=== PATIENT | female | born 1975 | race Caucasian/White ===

== ENCOUNTER 2018-01-30 07:31 | Day surgery (SDC) | payer OTHER ==
[2018-01-23 15:34] VITALS: Ht 152.4 cm; Wt 99.1 kg
[~2018-01-30] VITALS: Ht 152.4 cm; Wt 99.1 kg
[~2018-01-30 07:31] MED LIST: ACET-1256 PO; ALPR-411 PO; CEFAZOLIN 2000MG IV PUSH 15 ML IV SCH; DESVENLAFAXINE PO; IBUP-103 PO; LACTATED RINGER'S 1000ML 1,000 ML IV SCH; MONT1TAB3 PO; PANT40TA PO; RANI150T85 PO; VENL150C PO
[2018-01-30] MEDS ORDERED: HYDROmorphone INJ 0.5 MG/0.5 ML SYR IV PRN (07:45)
[2018-01-30] MEDS ORDERED: EpHEDrine SULFATE INJ 50 MG/ML AMP IV PRN (07:45)
[2018-01-30] MEDS ORDERED: PHENYLEPHRINE 100MCG/ML 5ML SYR IV PRN (07:45)
[2018-01-30] MEDS ORDERED: ATROPINE SULFATE 0.1 MG/ML 5ML SYR IV PRN (07:45)
[2018-01-30] MEDS ORDERED: PROMETHAZINE HCL INJ 12.5 MG in SODIUM CHLORIDE 0.9% 50ML 50 ML IV PRN (07:45)
[2018-01-30] MEDS ORDERED: ONDANSETRON INJ 2 MG/ML 2 ML VIAL IV PRN ×2 (07:45→12:30)
[2018-01-30 08:02] VITALS: BP 131/90; PULSE 90; TEMP 36.4; O2SAT 93
[2018-01-30] MEDS ORDERED: FENTANYL CITRATE INJ 50 MCG/1 ML 2 ML VIAL ONE ×2 (10:10→11:30)
[2018-01-30] MEDS ORDERED: MIDAZOLAM HCL 1 MG/ML 2ML VIAL ONE ×2 (10:10)
[2018-01-30] MEDS ORDERED: CONRAY 60% 50 ML VIAL ONE (10:42)
[2018-01-30] MEDS ORDERED: BUPIVACAINE 0.5 % 5 MG/1 ML MPF 30ML VIAL ONE (10:42)
[2018-01-30] MEDS ORDERED: CEFAZOLIN SOD 1 GM VIAL ONE (10:42)
[2018-01-30] MEDS ORDERED: HEPARIN SOD (PORCINE) 1000 UNIT/ML 10 ML VIAL ONE (10:42)
--- NOTE | 2018-01-30 10:50 | History & Physical Bridge Note ---
H&P Re-Evaluation Bridge Note: I have examined the patient, reviewed the History & Physical and in the interval since the performance of the History & Physical I have noted the following changes of clinical significance: No changes noted
[2018-01-30] MEDS ORDERED: DEXAMETHASONE SOD INJ 4 MG/ML VIAL ONE (11:31)
[2018-01-30] MEDS ORDERED: ONDANSETRON INJ 2 MG/ML 2 ML VIAL ONE (11:31)
[2018-01-30] MEDS ORDERED: PROPOFOL IV EMULSION 10 MG/ML 20 ML VIAL ONE (11:31)
[2018-01-30] MEDS ORDERED: ROCURONIUM BROMIDE 10 MG/ML 5 ML VIAL ONE (11:31)
[2018-01-30] MEDS ORDERED: LIDOCAINE HCL 2% 2 ML VIAL (20MG/ML) ONE (11:31)
[2018-01-30] MEDS ORDERED: GLYCOPYRROLATE INJ 0.2 MG/ML VIAL ONE ×2 (11:32→12:17)
[2018-01-30] MEDS ORDERED: NEOSTIGMINE METHYLSULFATE 5 MG/5 ML SYR ONE (11:32)
[2018-01-30] MEDS ORDERED: EpHEDrine SULFATE 50MG/5ML SYR ONE (11:41)
[2018-01-30] MEDS ORDERED: SODIUM CHLORIDE 0.9% 1000ML 1,000 ML IV SCH (12:16)
--- NOTE | 2018-01-30 12:16 | [facility] Post Operative Brief Note ---
Immediate Operative Summary Operative Date January 30, 2018. Pre-Operative Diagnosis chronic cholecystitis, symptomatic cholelithiasis Post-Operative Diagnosis same as preop Procedure(s) Performed Laparoscopic Cholecystectomy Surgeon Dr. Jose Covarrubias Silverer Surgeon(s) None Estimated Blood Loss 5mL Findings Consistent with Post-Op Diagnosis Specimens Permanent Solution: A.) Gallbladder and Contents Drains None Anesthesia Type General Complication(s) none Disposition Disposition: Recovery Room / PACU
--- NOTE | 2018-01-30 12:18 | Discharge Instructions ---
Discharge Instructions Date of Service January 30, 2018. Admission Reason for Admission: Symptomatic Cholelithiasis Discharge Discharge Diagnosis / Problem: sAME Discharge Goals Goal(s): Decrease discomfort Activity Recommendations Activity Limitations: per Instructions/Follow-up section Lifting Limitations: no more than 10 pounds (for 2 weeks) Shower/Bathe: tomorrow (shower only) . Instructions / Follow-Up Instructions / Follow-Up Post-Surgical ~ Discharge Instructions Activity Recommendations: - lifting limitation: (10 pounds for 2 weeks), - exercise/sex/sports limit: (nonstrenuous for 2 weeks), - driving or machine use limit: (none for 1 week), - Shower/bathe limit: (may shower beginning tomorrow) Diet: - Resume previous diet SPECIAL CARE INSTRUCTIONS: - May shower in 24 hours. Let water run over area and pat dry. - Leave steri strips on for one week. - Call the surgeon's office with any questions or concerns - - (ex. temperature higher than 101 degrees F, excessive bleeding or pain). MEDICATIONS: - Resume previous medications unless instructed otherwise by your surgeon. - Ibuprofen 600 mg every 6 hours with food - Percocet 1 every 4 hours, as needed for pain FOLLOW UP VISIT: - If not already scheduled, please call the office to schedule a two week follow-up appointment. Office number Current Hospital Diet Patient's current hospital diet: Discharge Diet Recommended Diet: Regular Diet Procedures Procedures Performed: Laparoscopic Cholecystectomy Pending Studies Studies pending at discharge: yes List of pending studies: Pathology Medical Emergencies . Who to Call and When: Medical Emergencies: If at any time you feel your situation is an emergency, please call 911 immediately. . Non-Emergent Contact Non-Emergency issues call your: Primary Care Provider, Surgeon Call Non-Emergent contact if: your pain is worsening, wound has increased redness, wound has increased pain . "Provider Documentation" section prepared by Jose Covarrubias. .
[2018-01-30] MEDS ORDERED: OXYCODONE/ACETAMINOPHEN 5-325 TAB PO PRN (12:30)
[2018-01-30] MEDS ORDERED: MoRPHine SULFATE 4 MG/ML 1 ML CARP\\VIAL IV PRN (12:30)
[2018-01-30] MEDS: FENTANYL CITRATE INJ 50 MCG/1 ML 2 ML VIAL IV PRN ×2 (12:38→12:51)
--- NOTE | 2018-01-30 13:07 | Anesthesiology Progress Note ---
Anesthesia Post Op Note Date & Time January 30, 2018 at 13:07 Vital Signs Pain Intensity: 4 Vital Signs Past 12 Hours Date Time Temp Pulse Resp B/P (MAP) Pulse Ox O2 Delivery O2 Flow Rate FiO2 01/30/18 12:55 87 14 112/62 93 Room Air 01/30/18 12:45 88 13 121/61 95 Oxymask 10 01/30/18 12:35 92 15 107/74 95 Oxymask 10 01/30/18 12:25 36.6 82 16 131/67 92 Oxymask 10 01/30/18 08:02 36.4 90 20 131/90 (104) 93 Room Air Notes Mental Status: alert / awake / arousable, participated in evaluation Pt Amnestic to Procedure: Yes Nausea / Vomiting: adequately controlled Pain: adequately controlled Airway Patency, RR, SpO2: stable & adequate BP & HR: stable & adequate Hydration State: stable & adequate Anesthetic Complications: no major complications apparent
[2018-01-30 13:15] VITALS: BP 104/59; PULSE 82; TEMP 36.4; O2SAT 96
[2018-01-30 13:45] VITALS: BP 99/61; PULSE 85; O2SAT 95
[2018-01-30 14:45] VITALS: BP 101/58; PULSE 75; O2SAT 94
--- NOTE | 2018-01-30 15:19 | OPERATIVE REPORT ---
DATE OF OPERATION: 01/30/2018 PREOPERATIVE DIAGNOSES: Cholelithiasis, chronic cholecystitis. POSTOPERATIVE DIAGNOSIS: Cholelithiasis, chronic cholecystitis. PROCEDURE: Laparoscopic cholecystectomy. SURGEON: Jose Covarrubias M.D. FINDINGS: The gallbladder had flimsy adhesions of the omentum to the body and infundibulum area. Over the neck, there were flimsy adhesions of the duodenum. The gallbladder was not dilated. The cystic duct was not dilated. The liver was of normal size and contour and the visible bowel appeared normal. TECHNIQUE: The patient was given a general anesthetic and the area was prepped and draped in the usual sterile fashion. Transverse incision was made below the umbilicus, carried down through the subcutaneous tissue to the fascia, which was grasped with two Cody clamps and incised between. The peritoneum was identified, incised, and the introducer was placed bluntly. The abdomen was then insufflated to a pressure of 15 mmHg with carbon dioxide. The upper midline, midclavicular and anterior axillary introducers were placed under direct vision through small skin incisions. Traction was placed on the gallbladder and the adhesions were taken down using blunt dissection. They were quite flimsy. When the duodenum and the adhesions were identified, there were taken down as well using blunt dissection, which exposed the infundibulum and neck. The peritoneum overlying the infundibulum on the lateral side was opened and peeled down towards the common bile duct and the infundibulum was dissected away from the liver on that lateral side. Further dissection was then carried out over the anterior surface of the infundibulum and into the triangle of Calot and the triangle was opened and the infundibulum was dissected away from the liver on the medial side. That allowed me to identify the cystic duct. There was a lot of fatty tissue and some connective tissue adherent that was taken down exposing and isolating the cystic duct on the left side, right side and anteriorly. The cystic artery was adherent to the posterolateral side of the cystic duct and I was able to establish a plane between those structures. I then was able to get behind the cystic duct, which allowed me to confirm the cystic duct gallbladder junction. Three clips were placed on the proximal cystic duct, one near the junction with the gallbladder and it was divided. Two clips were placed on the proximal cystic artery, one near the gallbladder and it was divided. The gallbladder was then peeled off the liver bed using electrocautery. The gallbladder was placed into an Endobag and brought out through the upper midline introducer site. The introducer was replaced and the liver edge was elevated. There were two areas of oozing from the gallbladder bed of the liver and these were easily controlled with cautery. These subdiaphragmatic and subhepatic spaces were irrigated and irrigation removed. The gallbladder bed of the liver was again inspected and there was no further bleeding. The clips were inspected and were intact. Gas was allowed to escape and the introducers were removed. The fascia of the umbilical and upper midline introducer sites were closed with interrupted 0 Vicryl and skin of all the incisions was closed with 4-0 Monocryl in either an interrupted or running subcuticular fashion. The skin was anesthetized with 0.5% Marcaine. The skin was cleansed, dried, benzoin placed, Steri-Strips applied. Estimated blood loss was 5 mL. Sponge, needle and instrument counts were correct prior to closure. The patient tolerated the surgical procedure without complication and was transferred to recovery. I attest to the content of the Intraoperative Record and any orders documented therein. Any exception s are noted below.
== END 2018-01-30 14:50 | disposition home or self-care (01) ==
LOC: C.ACU 07:31 → MERGE 10:17 → C.ACU 14:50
PROVIDERS: ATTEND Surgery
DX: K80.10 Calculus of gallbladder with chronic cholecystitis without obstruction (principal); K82.8 Other specified diseases of gallbladder; F41.8 Other specified anxiety disorders; E66.9 Obesity, unspecified; Z68.41 Body mass index [BMI] 40.0-44.9, adult; F17.200 Nicotine dependence, unspecified, uncomplicated; Z88.8 Allergy status to other drugs, medicaments and biological substances; Z90.710 Acquired absence of both cervix and uterus; Z79.899 Other long term (current) drug therapy

== ENCOUNTER 2023-03-01 06:18 | Observation (INO) ==
--- NOTE | 2023-02-15 11:36 | PAT Medication Instructions ---
Medication Instructions Date of Service February 15, 2023 Home Medications Medication Instructions Recorded diclofenac sodium 75 mg 75 mg PO BID PRN pain, moderate 01/27/23 tablet,delayed release #30 tabs alprazolam 0.5 mg tablet (Xanax) 0.5 mg PO BID cetirizine 10 mg tablet 10 mg PO QPM desvenlafaxine succinate 25 mg tablet,extended release 24 hr 25 mg PO QAM ergocalciferol (vitamin D2) 1,250 mcg (50,000 unit) capsule 1,250 mcg PO Q7D famotidine 40 mg tablet 40 mg PO QPM lamotrigine 100 mg tablet 100 mg PO QAM lamotrigine 200 mg tablet 200 mg PO QPM levomefolate calcium 7.5 mg tablet (L-Methylfolate) 3.75 mg PO QAM montelukast 10 mg tablet 10 mg PO QPM pantoprazole 40 mg tablet,delayed release 40 mg PO QAM rosuvastatin 5 mg tablet 5 mg PO HS venlafaxine 150 mg capsule,extended release 24 hr 150 mg PO QAM diclofenac sodium 75 mg tablet,delayed release 75 mg PO BID PRN calcium carbonate 600 mg calcium (1,500 mg) tablet (Calcium) 600 mg PO BID lamotrigine 25 mg tablet 25 mg PO QAM ASK your surgeon for instructions diclofenac sodium 75 mg tablet,delayed release 75 mg PO BID PRN STOP taking 2 weeks before surgery (or as soon as possible if surgery is within 2 weeks) levomefolate calcium 7.5 mg tablet (L-Methylfolate) 3.75 mg PO QAM DO NOT take the morning of surgery ergocalciferol (vitamin D2) 1,250 mcg (50,000 unit) capsule 1,250 mcg PO Q7D calcium carbonate 600 mg calcium (1,500 mg) tablet (Calcium) 600 mg PO BID Take morning of surgery With a small sip of water, OTHERWISE NOTHING TO EAT OR DRINK AFTER MIDNIGHT: alprazolam 0.5 mg tablet (Xanax) 0.5 mg PO BID lamotrigine 100 mg tablet 100 mg PO QAM pantoprazole 40 mg tablet,delayed release 40 mg PO QAM venlafaxine 150 mg capsule,extended release 24 hr 150 mg PO QAM lamotrigine 25 mg tablet 25 mg PO QAM Take evening before surgery alprazolam 0.5 mg tablet (Xanax) 0.5 mg PO BID cetirizine 10 mg tablet 10 mg PO QPM desvenlafaxine succinate 25 mg tablet,extended release 24 hr 25 mg PO QAM famotidine 40 mg tablet 40 mg PO QPM lamotrigine 200 mg tablet 200 mg PO QPM montelukast 10 mg tablet 10 mg PO QPM rosuvastatin 5 mg tablet 5 mg PO HS calcium carbonate 600 mg calcium (1,500 mg) tablet (Calcium) 600 mg PO BID Other Notes If you have any questions please call us at [phone] or [phone] or [phone] or [phone]
--- NOTE | 2023-02-16 13:40 | Anesthesiology Consultation ---
Date of Service February 16, 2023 Assessment & Plan (1) Encounter for pre-operative examination: Chart Review Chart Review: Acceptable Risk for Surgery and Patient seen in Pre Admission Testing - Pt is NOT an OPJ candidate due to BMI Per PAT appt on 02/16/23, patient denies any recent travel or large group activities. Pt is vaccinated for Covid. Will leave to surgeon's discretion if preop Covid testing needed. Educated on importance of using Covid precautions one week prior to surgery Teaching & Discussion Pre-Anesthesia Teaching/Discussion Notes: Instructed NPO after midnight before surgery,except medications with 15 cc of water. Medication instructions provided according to the [facility] guidelines. History Surgery Operation Date: 03/01/23 10:40 Proposed Procedures p Left Total Hip Arthroplasty - Edward Urias MD Height/Weight Height: 5 ft Weight: 108.5 kg Allergies Allergy/AdvReac Type Severity Reaction Status Date / Time omeprazole Allergy Unknown FACIAL Verified 02/11/23 13:09 SWELLING iron AdvReac hemorrhoids Verified 02/11/23 13:09 meloxicam AdvReac "make me Verified 02/11/23 13:09 very sick in my stomach" Medications Home Medications Medication Instructions Recorded Confirmed Last Taken alprazolam 0.5 mg tablet (Xanax) 0.5 mg PO BID 12/07/21 02/11/23 Unknown cetirizine 10 mg tablet 10 mg PO QPM 12/07/21 02/11/23 Unknown desvenlafaxine succinate 25 mg 25 mg PO QAM 12/07/21 02/11/23 Unknown tablet,extended release 24 hr ergocalciferol (vitamin D2) 1,250 1,250 mcg PO Q7D 12/07/21 02/11/23 Unknown mcg (50,000 unit) capsule famotidine 40 mg tablet 40 mg PO QPM 12/07/21 02/11/23 Unknown lamotrigine 100 mg tablet 100 mg PO QAM 12/07/21 02/11/23 Unknown lamotrigine 200 mg tablet 200 mg PO QPM 12/07/21 02/11/23 Unknown levomefolate calcium 7.5 mg tablet 3.75 mg PO QAM 12/07/21 02/11/23 Unknown (L-Methylfolate) montelukast 10 mg tablet 10 mg PO QPM 12/07/21 02/11/23 Unknown pantoprazole 40 mg tablet,delayed 40 mg PO QAM 12/07/21 02/11/23 Unknown release rosuvastatin 5 mg tablet 5 mg PO HS 12/07/21 02/11/23 Unknown venlafaxine 150 mg 150 mg PO QAM 12/07/21 02/11/23 Unknown capsule,extended release 24 hr diclofenac sodium 75 mg 75 mg PO BID PRN pain, moderate 01/27/23 02/11/23 Unknown tablet,delayed release #30 tabs calcium carbonate 600 mg calcium 600 mg PO BID 02/11/23 02/11/23 Unknown (1,500 mg) tablet (Calcium) lamotrigine 25 mg tablet 25 mg PO QAM 02/11/23 02/11/23 Unknown Past Medical History Medical History Anxiety and depression Calcium deficiency On Ca supplement. GERD (gastroesophageal reflux disease) Well controlled and stable History of COVID-2019, hospitalized for 7-8 days at [place]; pO2 was "very low," life- flighted to [place]>resolved w/exception of altered taste and smell Hyperlipidemia Osteoarthritis back and hips Seasonal allergies Exercise / Class Metabolic Activity III < 4 Walking/Shop/Light housework (one flight of stairs - no chest pain, mild SOB ) Past Surgical History Surgical History History of esophagogastroduodenoscopy (EGD) History of partial hysterectomy Hx laparoscopic cholecystectomy Hx of foot surgery Lt. foot-tendon sx. Past Anesthesia History No Hx of Anesthesia Complications and No Family Hx of Anesthesia Complications History of PONV No Hx of PONV and No Hx of Motion Sickness Social History Smoking Status: Current every day smoker tobacco type: cigarettes Smoking cigarettes per day: 20cigs/day Do You Dip or Chew Tobacco: No Hx Alcohol Use: No Hx Substance Use: No substance use type: does not use Review of Systems Hx of chronic cough - due to smoking Hx of snoring - no witnessed apnea - no hx of sleep study Patient denies chest pain, shortness of breath at rest, wheezing, palpitations. No hx of seizures, stroke, SC. No hx of blood clots or blood transfusions Physical Exam Vital Signs VITALS BP 117/76 P 93 TEMP 98.3 SP02 94% RESP 16 Constitutional no acute distress ENMT Mouth: no TMJ clicking Thyromental Distance: > or= 3.5 Finger Breadths (3.0) Mallampati Class: III Full denture on top Missing bottom molars Neck + short neck, + thick neck and + limited neck extension (minimal ) Respiratory normal respiratory effort; no respiratory distress Auscultation: lungs clear to auscultation bilaterally and + diminished lung sounds (mildly throughout ); no wheezes Cardiovascular Rate/Rhythm: regular rate and regular rhythm Heart Sounds: no murmur Vessels: no carotid bruit Heart sounds mildly diminished Musculoskeletal Spine: no pain with cervical ROM Extremities: extremities normal to inspection Psychiatric Orientation: alert Lab Results Anesthesia Preop Results Results Anesthesia Widget: WBC 14.74 K/ul (4.8-10.8) H 02/16/23 Hgb 14.7 g/dl (12.0-16.0) 02/16/23 Hct 41.8 % (37.0-47.0) 02/16/23 Plt 300 K/uL (130-400) 02/16/23 Na 134 mmol/L (136-145) L 02/16/23 K 4.3 mmol/L (3.5-5.1) 02/16/23 Cl 101 mmol/L (98-107) 02/16/23 CO2 25 mmol/L (21-32) 02/16/23 BUN 24 mg/dl (6-23) H 02/16/23 Creat 0.85 mg/dl (0.6-1.2) 02/16/23 Glucose Level 98 mg/dl (70-99(Fasting)) 02/16/23 PT 10.2 Seconds (9.0-12.0) 02/16/23 PTT 27.0 Seconds (21.0-31.0) 02/16/23 INR 0.9 (0.9-1.1) 02/16/23 Blood Type O Positive 02/16/23 Antibody Screen NEGATIVE 02/16/23 Testing Laboratory Results Mild leukocytosis - surgeon's office informed - discussed with Dr. Lawrence- will leave to surgeon's discretion on how to proceed (pt afebrile with no signs or symptoms of illness at 02/16/23 PAT appt, CXR showed NAD) Electrocardiogram Date: 02/16/23 Findings: + NSR @ (88bpm ) Low voltage QRS Chest X-Ray Date: 02/16/23 Findings: + NAD FINDINGS: PA and lateral chest radiographs are obtained. No prior studies are available for comparison at the time of dictation. The cardiomediastinal silhouette is unremarkable. There is mild bibasilar atelectasis. The lungs and pleural spaces are otherwise clear. There is no pneumothorax. The bony thorax appears intact. Cholecystectomy clips are noted the upper abdomen. COVID-19 Risk Screen Screening Information COVID-19 Screen Date: 02/16/23 Exposure 21 Days Family/Household +COVID Last 21 Days: No Exposure 10 Days Any COVID Exposure Last 10 Days: No Symptoms Last 10 Days Experienced COVID Sx Last 10 Days: No + COVID 0-90 Days COVID + in Last 0-90 Days: No Risk Plan COVID Risk Plan: No Risk Identified Patient Education COVID Preop Screening Education Complete: Yes
[~2023-03-01 06:18] MED LIST changes: -ACET-1256 PO; +ACETAMINOPHEN 500 MG TAB PO SCH; -ALPR-411 PO; +BUPIVACAINE LIPOSOME/PF 266 MG, BUPIVACAINE/EPINEPHRINE 50 ML, SODIUM CHLORIDE 0.9% PF ... INFIL SCH; -CEFAZOLIN 2000MG IV PUSH 15 ML IV SCH; +CeleBREX 200 MG CAP PO SCH; -DESVENLAFAXINE PO; +FAMOTIDINE 20 MG TAB PO SCH; -IBUP-103 PO; -LACTATED RINGER'S 1000ML 1,000 ML IV SCH; +LR 500ML BOLUS, THEN 15ML/HR IV SCH; +LR 60ML/HR IV SCH; +METOCLOPRAMIDE HCL 10 MG TABLET PO SCH; -MONT1TAB3 PO; -PANT40TA PO; -RANI150T85 PO; +Scopolamine 1 MG TDSY TD SCH; +TRANEXAMIC ACID 1,000 MG **IV Pre-op IV SCH; -VENL150C PO; +ceFAZolin 2000MG 2,000 MG/15 ML SYR IV SCH; +dexAMETHasone**PF** 10 MG/ML VIAL IV SCH
[2023-03-01] MEDS ORDERED: BUPIVACAINE 0.5 % 5 MG/1 ML PF 10ML VIAL ONE (06:27)
--- NOTE | 2023-03-01 06:55 | History & Physical Bridge Note ---
Date of Service March 01, 2023 History & Physical Bridge Note I have examined the patient, reviewed the History & Physical and in the interval since the performance of the History & Physical I have noted the following changes of clinical significance: no changes noted
[2023-03-01] MEDS ORDERED: PROPOFOL IV EMULSION 10 MG/ML 20 ML VIAL IV ONE (07:32)
[2023-03-01] MEDS ORDERED: ONDANSETRON INJ 2 MG/ML 2 ML VIAL ONE ×2 (07:32→10:01)
[2023-03-01] MEDS ORDERED: LIDOCAINE 2% 2 ML VIAL/AMP(20MG/ML) INFIL ONE (07:32)
[2023-03-01] MEDS ORDERED: MIDAZOLAM HCL 1 MG/ML 2ML VIAL ONE (07:33)
[2023-03-01] MEDS ORDERED: MoRPHine SULFATE PF 1 MG/ML 10 ML AMP/VIAL ONE (07:33)
[2023-03-01] MEDS ORDERED: ONDANSETRON INJ 2 MG/ML 2 ML VIAL IV PRN ×2 (08:08→12:26)
[2023-03-01] MEDS ORDERED: ePHEDrine sulfate 50 MG/ML AMP IV PRN (08:08)
[2023-03-01] MEDS ORDERED: ATROPINE SULFATE 0.1 MG/ML 10ML SYR IV PRN (08:08)
[2023-03-01] MEDS ORDERED: fentaNYL citrate PF 100 MCG/2 ML VIAL IV PRN (08:08)
[2023-03-01] MEDS ORDERED: fentaNYL citrate PF 100 MCG/2 ML VIAL ONE ×2 (08:11→09:43)
[2023-03-01] MEDS ORDERED: BUPIVACAINE/EPINEPHRINE 0.5% MPF 1:200,000 30 ML VIAL ONE (08:46)
[2023-03-01] MEDS ORDERED: KETAMINE 50 MG/5 ML SYRINGE ONE (09:07)
[2023-03-01] MEDS ORDERED: HYDROmorphone INJ 2 MG/ML SYR/VIAL ONE (09:44)
[2023-03-01] MEDS ORDERED: DEXAMETHASONE SOD INJ 4 MG/ML VIAL ONE (09:50)
[2023-03-01] MEDS ORDERED: KETOROLAC 30 MG/ML VIAL ONE (09:50)
--- NOTE | 2023-03-01 10:32 | Operative Report ---
[facility] Post Operative Report Pre & Post Diagnosis Operation Date: 03/01/23 08:40 Pre-Op Diagnosis: osteoarthritis of left hip Post-Op Diagnosis: osteoarthritis of left hip I identified the patient and participated in the time-out.: Yes Procedure Operation Date: 03/01/23 08:40 Actual Procedures p Left Total Hip Arthroplasty(Left) - Edward Urias MD Surgeon Edward Urias MD Mattress Filler Michael Weber PA-C Estimated Blood Loss 150 Findings Consistent with Post-Op Diagnosis Operative findings revealed advanced left hip DJD. She had extensive grade 4 jhgj-[id number] disease of the hip joint on both sides. That she had significant osteophytes around the femoral head. Moderate-sized joint effusion. Specimens Left femoral head sent for pathology Anesthesia Type General Complications none Disposition Accompanied Patient To Recovery: No Indications Patient is a 47-year-old female/7-year history of increasing bilateral hip pain and discomfort. She been through extensive conservative care which became less successful over time. She is markedly debilitated by her problem. X-rays show advanced hip arthritis. She elected proceed with surgical treatment. Description of Procedure Operative implants consist of: 1 Biomet G7 size 48 mm acetabular shell. 2. 6.5 cancellous acetabular screws 1 at 35 mm in length and 1 of 20 mm length. 3. Stratton eliminator. 4. Highly cross-linked polyethylene liner with a 48 mm outer diameter and 32 mm diameter. 5. DePuy Corail size 10 short neck 125 degree angle femoral stem. 6. Is a +5/32 mm ceramic articular ball. The patient was taken the operating, identified, and placed on the operating table supine position. All contractors were properly padded. IV antibiotics tried by anesthesia team. A general anesthetic was implemented by the anesthesia team as the patient refused a spinal. Templeton catheter was placed in sterile fashion. The patient then placed in the right lateral decubitus p osition. A roll was placed. Stulberg hip positioner was used for positioning. The left hip and leg were then prepped and draped in usual sterile fashion. A posterolateral approach to the left hip was then performed through a curvilinear incision centered over the greater trochanter. Sharp dissection was carried through subcutaneous tissue down to the IT band gluteal fascia. The IT band gluteal fascia incised longitudinally in line with the skin incision. The underlying greater bursa was excised. The piriformis and external rotators were then taken off the posterior aspect of the hip joint along with the posterior capsule as a single layer. Great care was taken Procedure protect the sciatic nerve at all times. The hip was internally rotated and dislocated. Femoral neck osteotomy cut was made just above the lesser trochanter. Femoral head was removed and sent for pathology. The femur was retracted anteriorly. Attention drawn the acetabulum. The acetabulum was excised. Pulmonary fat was excised. Sequential reaming the acetabular was then performed beginning with a size 43 and progressing up to a 47. I then reamed a bit with a 48 reamer and then placed a 48 mm cup in about 40 degrees lateral opening and 20 degrees of anteversion. It was fixed with two 6.5 cancellous acetabular screws. A trial liner was placed. Some small anterior osteophytes removed. Attention drawn the femur. The proximal femur was then with a Appia cutter followed by canal finder. I then broached beginning with size 8 and progressing up to a 9. I then elected to place the tendon as I felt it was just a little bit loose and was not able to quite get the [address]. We elect to leave this just a little bit proud. We trialed the hip and the hip was fully stable with a +5 articular ball. Soft tissue tension seemed appropriate. We elect to place these implants. Nupathe all trial implants were removed. An apex eliminator was placed. Highly cross-linked polyethylene liner was placed. A size 10 KLA short neck 125 degree angle stem was placed. I did leave this about 2 mm proud. A +5/32 mm ceramic articular ball was placed. Hip was located and once again found to be stable. Attention drawn to closing. The wounds irrigated cosigns pulsatile lavage solution. We did inject locally with 60 cc of half percent Marcaine with epinephrine. The posterior capsule and external rotators were then repaired through drill holes in the posterior trochanter as a single layer with #2 Tycron suture. The IT band gluteal fascia then closed in 1 PDS suture in a running fashion through the subcutaneous tissues then closed with 2 layers with a deep layer #2 Vicryl in the subcutaneous tissues with 2-0 Dexon suture in a buried interrupted fashion. Skin was closed skin ashok. Leg was then cleaned and dried. A sterile Prevena VAC dressing was applied. The patient was then brought out of general anesthesia and transferred to the recovery room in stable condition. Patient tolerated procedure well and there were no complications. Michael Weber, my physician marketing communications assistant, was present for the entire procedure. His assistance was essential and required for appropriate patient positioning, prepping and draping, surgical exposure, performing the technical details of the operation, placement the implants, closure of the wound, and placement of the sterile bandage. I attest to the content of the Intraoperative Record and any orders documented therein. Any exceptions are noted below.
--- NOTE | 2023-03-01 11:17 | XRay Report ---
XR hip 1V LT w pelvis CLINICAL HISTORY: IN PACU - Post Surgical TECHNIQUE: 2 views of the left hip were obtained. Comparison: Comparison is made to hip radiographs 02/11/2023 FINDINGS: Patient is status post total hip arthroplasty with expected postsurgical changes including soft tissu e swelling and subcutaneous emphysema. IMPRESSION: Expected postoperative appearance status post placement of total hip arthroplasty. ACT 112: Negative or not required by law. Electronically signed by: Moshe Greene M.D. 03/01/2023 11:15 AM
--- NOTE | 2023-03-01 12:07 | Anesthesiology Progress Note ---
Date of Service March 01, 2023 Anesthesia Post Procedure Vital Signs Vital Signs: Temp Pulse Resp BP Pulse Ox O2 Del Method O2 Flow Rate 03/01/23 11:25 97 H 18 101/65 95 Nasal Cannula 2 03/01/23 11:15 97.5 F L 101 H 19 122/77 95 Nasal Cannula 2 03/01/23 11:05 102 H 16 113/68 90 Room Air 03/01/23 10:55 101 H 18 108/73 96 Oxymask 6 03/01/23 10:45 108 H 18 125/86 95 Oxymask 6 03/01/23 10:35 120 H 13 123/71 98 Oxymask 6 03/01/23 10:27 96.8 F L 98 H 12 133/106 H 95 Oxymask 6 03/01/23 07:04 97.9 F 95 H 20 144/104 H 96 Room Air Pain Intensity Left Hip: Pain Intensity: 3 Transfer of Care Handoff Completed per policy Notes Mental Status: alert / awake / arousable and participated in evaluation Patient Amnestic to Procedure: Yes Nausea / Vomiting: adequately controlled Pain: adequately controlled Airway Patency, RR, SpO2: stable & adequate BP & HR: stable & adequate Hydration State: stable & adequate Anesthetic Complications: no major complications apparent and Pt Satisfied with anesthetic care
[2023-03-01] MEDS ORDERED: NALOXONE HCL 0.4 MG/1 ML VIAL/CARP IV PRN (12:26)
[2023-03-01] MEDS ORDERED: METOCLOPRAMIDE HCL INJ 5 MG/ML 2 ML VIAL IV PRN (12:26)
[2023-03-01] MEDS ORDERED: bisacodyL 10 MG SUPP PR PRN (12:26)
[2023-03-01] MEDS ORDERED: traMADol HCL 50 MG TABLET PO PRN (12:26)
[2023-03-01] MEDS ORDERED: ALUMINUM/MAGNESIUM SUSP 30 ML UDC PO PRN (12:26)
[2023-03-01] MEDS ORDERED: HYDROmorphone INJ 0.5 MG/0.5 ML SYR IV PRN (12:26)
[2023-03-01] MEDS ORDERED: MAGNESIUM HYDROXIDE SUSP 30 ML UDC PO PRN (12:26)
[2023-03-01] MEDS ORDERED: diphenhydrAMINE Capsule 25 MG CAP PO PRN (12:26)
[2023-03-01] MEDS: SODIUM CHLORIDE 0.9% 1000ML 1,000 ML IV SCH ×2 (13:08→23:08)
[2023-03-01] MEDS ORDERED: ACETAMINOPHEN 500 MG TAB PO SCH (14:00)
[2023-03-01] MEDS: ACETAMINOPHEN 500 MG TAB PO SCH ×2 (14:32→23:08)
[2023-03-01] MEDS ORDERED: TRANEXAMIC ACID / 0.7% NACL 1,000 MG/100 ML BAG IV SCH (16:30)
[2023-03-01] MEDS: ceFAZolin 2000MG 2,000 MG/15 ML SYR IV SCH (17:03)
[2023-03-01] MEDS: Scopolamine CHECK PATCH PLACEMENT SCH (17:04)
[2023-03-01] MEDS: ASCORBIC ACID 500 MG TAB PO SCH (17:18)
[2023-03-01] MEDS: KETOROLAC 30 MG/ML VIAL IV SCH ×2 (18:03→23:09)
[2023-03-01] MEDS: DOCUSATE SODIUM 100 MG CAP PO SCH (20:51)
[2023-03-01] MEDS: ASPIRIN 81 MG ECTAB PO SCH (20:51)
[2023-03-01] MEDS: CALCIUM CARBONATE 1250MG TAB PO SCH (20:51)
[2023-03-01] MEDS ORDERED: ROSUVASTATIN CALCIUM 5 MG TAB PO SCH (21:00)
[2023-03-01] MEDS ORDERED: lamoTRIgine 100 MG TAB PO SCH (21:00)
[2023-03-01] MEDS ORDERED: CETIRIZINE HCL 10 MG TABLET PO SCH (21:00)
[2023-03-01] MEDS ORDERED: SENNA 8.6 MG TAB PO SCH ×2 (21:00)
[2023-03-01] MEDS ORDERED: FAMOTIDINE 40 MG TABLET PO SCH (21:00)
[2023-03-01] MEDS ORDERED: MONTELUKAST SODIUM 10 MG TABLET PO SCH (21:00)
[2023-03-01] MEDS: ALPRAZolam 0.5 MG TABLET PO SCH (21:06)
[2023-03-01] MEDS ORDERED: dilTIAZem HCL 120 MG CAPCR PO SCH (22:00)
[2023-03-02] MEDS: ceFAZolin 2000MG 2,000 MG/15 ML SYR IV SCH (01:06)
[2023-03-02] MEDS: Scopolamine CHECK PATCH PLACEMENT SCH ×2 (01:06→07:58)
[2023-03-02] MEDS: ACETAMINOPHEN 500 MG TAB PO SCH (06:03)
[2023-03-02] MEDS: KETOROLAC 30 MG/ML VIAL IV SCH ×2 (06:03→12:54)
[2023-03-02 07:13] LABS: Basophils # (auto) 0.03 K/uL (0-0.2); Basophils % (auto) 0.2 %; Eosinophils # (auto) 0.09 K/uL (0-0.50); Eosinophils % (auto) 0.7 %; Hematocrit (blood only) 32.5 % (37.0-47.0); Hemoglobin 11.1 g/dl (12.0-16.0); Immature Granulocytes # (auto) 0.09 K/uL (0.01-0.20); Immature Granulocytes % (auto) 0.7 %; Lymphocytes # (auto) 2.36 K/uL (1.2-3.4); Lymphocytes % (auto) 17.7 %; Mean Corpuscular Hemoglobin 30.7 pg (25.0-34.0); Mean Corpuscular Hgb Conc 34.2 g/dL (32.0-36.0); Mean Corpuscular Volume 89.8 fL (80.0-100.0); Mean Platelet Volume 9.1 fL (9.4-12.4); Monocytes # (auto) 1.03 K/uL (0.11-0.59); Monocytes % (auto) 7.7 %; Platelet Count 216 K/uL (130-400); RDW Coefficient of Variation 12.6 % (11.5-14.5); RDW Standard Deviation 41.2 fL (36.4-46.3); Red Blood Count 3.62 M/uL (4.20-5.40)
[2023-03-02 07:26] LABS: BUN Creatinine Ratio 15.9 (10-20); Calcium 9.1 mg/dl (8.6-10.3); Creatinine Clr Calc Pharmacy 119.6 ml/min; Est GFR (African American) 122.1 ml/min; Est GFR (Non-African American) 105.3 ml/min; Potassium 4.2 mmol/L (3.5-5.1)
[2023-03-02] MEDS: ASCORBIC ACID 500 MG TAB PO SCH (07:57)
[2023-03-02] MEDS: ASPIRIN 81 MG ECTAB PO SCH (08:00)
[2023-03-02] MEDS ORDERED: dexAMETHasone 10 MG in SYRINGE 0 ML IV SCH (08:00)
[2023-03-02] MEDS: CALCIUM CARBONATE 1250MG TAB PO SCH (08:01)
[2023-03-02] MEDS: DOCUSATE SODIUM 100 MG CAP PO SCH (08:02)
[2023-03-02] MEDS: ALPRAZolam 0.5 MG TABLET PO SCH (08:10)
[2023-03-02] MEDS ORDERED: lamoTRIgine 100 MG TAB PO SCH (09:00)
[2023-03-02] MEDS ORDERED: MULTIVITAMIN TAB PO SCH (09:00)
[2023-03-02] MEDS ORDERED: DESVENLAFAXINE SUCCINATE ER TABLET PO SCH (09:00)
[2023-03-02] MEDS ORDERED: lamoTRIgine 25 MG TAB PO SCH (09:00)
[2023-03-02] MEDS ORDERED: NICOTINE 14 MG/24 HR PATCH TD SCH (09:00)
[2023-03-02] MEDS ORDERED: PANTOprazole 40 MG TAB PO SCH (09:00)
[2023-03-02] MEDS ORDERED: NON-FORMULARY PATIENT'S OWN MED PO SCH (09:00)
[2023-03-02] MEDS ORDERED: VENLAFAXINE HCL XR 150 MG CAPXR PO SCH (09:00)
--- NOTE | 2023-03-02 13:41 | Progress Notes ---
SUBJECTIVE: A 47-year-old female postop day 1 from a left hip replacement. She is doing well. Ther apy went well. Pain is controlled. She says she is hoping to go home. No chest pain or shortness o f breath. OBJECTIVE: VITAL SIGNS: Temperature 36.6. Vital signs are stable. GENERAL: Shows a pleasant middle-aged female. She is sitting up in bed, talking to her and looks completely comfortable. LUNGS: Clear to auscultation. HEART: Regular rate and rhythm. ABDOMEN: Soft, nontender, nondistended. EXTREMITIES: Grossly neurovascularly intact except as follows. Examination of the left leg reveals a Prevena VAC dressing to be in place. Thigh is soft and supple. Leg lengths are equal. She can dorsiflex and plantarflex her foot appropriately. She is neurologi nuria intact. LABORATORY DATA: Hemoglobin 11.1. Hematocrit 32.5. Electrolytes are stable. ASSESSMENT: A 47-year-old female postop day 1 from left hip replacement, doing well. Pain is contro lled. Hip is located. She is neurologically intact. She is hoping to go home. PLAN: 1. DVT prophylaxis includes thigh-high TEDs, SCDs, and aspirin twice a day. 2. PT/OT, weightbear as tolerated. Left total hip protocol. 3. Pain control, doing okay with current pain regimen. 4. Disposition: Plan to discharge to home with some home health today. Job ID: [id number]
[2023-03-02] MEDS ORDERED: dilTIAZem HCL 120 MG CAPCR PO SCH (21:00)
[2023-03-07] MEDS ORDERED: ERGOCALCIFEROL 50,000 UNITS 1250 MCG CAP PO SCH (22:00)
--- NOTE | 2023-03-08 10:03 | Discharge Summary ---
Date of Service March 08, 2023 Discharge Data Procedures Performed Operation Date: 03/01/23 08:40 Actual Procedures p Left Total Hip Arthroplasty(Left) - Edward Urias MD Hospital Course (1) S/P total left hip arthroplasty: This is a 47 year old patient admitted on 03/01/23 and underwent total hip arthroplasty. She tolerated the procedure well and there were no complications. Transferred to the PACU post op and later to the orthopedic floor for further care. She was given ancef for antibiotic prophylaxis. She was also given MONIQUE stockings, SCDs, and aspirin for DVT prophylaxis. Hemoglobin, hematocrit, and vital signs were monitored during her hospital stay and remained stable. Did not require any blood transfusions. There were no complications during her hospital stay. By post op day #1 the patient was tolerating a regular diet, pain was reasonably controlled with oral pain medicine, and she was participating in physical therapy. On post op day #1 the patient was discharged home and set up with home health care. She was given printed discharge instructions including prescriptions for extra strength tylenol, aspirin, ketorolac, cefadroxil, zofran, senokot, and tramadol. Continue hip precautions. Continue physical therapy, weight bearing as tolerated. Continue MONIQUE stockings. Follow up approximately 2 weeks post op or sooner if there are problems or concerns. Coding Level of Care Code None Diagnoses S/P total left hip arthroplasty Z96.642
== END 2023-03-02 13:28 | disposition home health service (06) ==
LOC: ASU 06:18 → 3E 06:18

== ENCOUNTER 2023-05-10 05:01 | Observation (INO) ==
--- NOTE | 2023-04-22 08:48 | Anesthesiology Consultation ---
Date of Service April 22, 2023 Assessment & Plan (1) Encounter for pre-operative examination: - s/p L PORSCHE 03/01/2323 Grade 1 view, MAC 3, ETT 7.5. - Outpatient joint assessment: Patient is currently scheduled for inpatient pathway. If re-evaluated and patient/surgeon requests outpatient pathway, patient is not candidate for outpatient joint program from anesthesia standpoint. Chart Review Chart Review: Acceptable Risk for Surgery and Patient NOT seen in Pre Admission Testing History Surgery Operation Date: 04/27/23 10:20 Proposed Procedures p Right Total Hip Arthroplasty - Edward Urias MD Height/Weight Height: 5 ft Weight: 108.862 kg Allergies Allergy/AdvReac Type Severity Reaction Status Date / Time omeprazole Allergy Severe FACIAL Verified 04/21/23 14:10 SWELLING meloxicam Allergy Mild effects Verified 04/21/23 14:10 "my depression medications" iron AdvReac Intermediate hemorrhoids Verified 04/21/23 14:10 gabapentin AdvReac Mild sick in Verified 04/21/23 14:10 stomach nicotine patch Allergy Severe Seizure Uncoded 04/21/23 14:10 Medications Home Medications Medication Instructions Recorded Confirmed Last Taken alprazolam 0.5 mg tablet (Xanax) 0.5 mg PO BID 12/07/21 04/21/23 03/01/23 06:10 cetirizine 10 mg tablet 10 mg PO QPM 12/07/21 04/21/23 02/28/23 22:00 desvenlafaxine succinate 25 mg 25 mg PO QAM 12/07/21 04/21/23 03/01/23 06:10 tablet,extended release 24 hr (Pristiq) ergocalciferol (vitamin D2) 1,250 1,250 mcg PO Q7D 12/07/21 04/21/23 02/28/23 22:00 mcg (50,000 unit) capsule famotidine 40 mg tablet (Pepcid) 40 mg PO QPM 12/07/21 04/21/23 03/01/23 06:10 lamotrigine 100 mg tablet 100 mg PO QAM 12/07/21 04/21/23 03/01/23 06:10 lamotrigine 200 mg tablet 200 mg PO QPM 12/07/21 04/21/23 02/28/23 22:00 levomefolate calcium 7.5 mg tablet 3.75 mg PO QAM 12/07/21 04/21/23 02/28/23 08:00 (L-Methylfolate) montelukast 10 mg tablet 10 mg PO QPM 12/07/21 04/21/23 02/28/23 22:00 pantoprazole 40 mg tablet,delayed 40 mg PO QAM 12/07/21 04/21/23 03/01/23 06:10 release (Protonix) rosuvastatin 5 mg tablet 5 mg PO HS 12/07/21 04/21/23 02/28/23 22:00 venlafaxine 150 mg 150 mg PO QAM 12/07/21 04/21/23 Unknown capsule,extended release 24 hr (Effexor XR) calcium carbonate 600 mg calcium 600 mg PO BID 02/11/23 04/21/23 02/28/23 20:00 (1,500 mg) tablet (Calcium) lamotrigine 25 mg tablet (Lamictal) 25 mg PO QAM 02/11/23 04/21/23 03/01/23 06:10 acetaminophen 500 mg tablet 1,000 mg PO DAILY PRN Pain 04/21/23 04/21/23 Unknown (Tylenol Extra Strength) docusate sodium 100 mg capsule 100 mg PO DAILY PRN Constipation 04/21/23 04/21/23 Unknown (Colace) Past Medical History Medical History Anxiety and depression Calcium deficiency On Ca supplement. GERD (gastroesophageal reflux disease) Well controlled and stable History of COVID-2019, hospitalized for 7-8 days at [facility]; pO2 was "very low," life- flighted to [facility]>resolved w/exception of altered taste and smell Hyperlipidemia Osteoarthritis Seasonal allergies Past Family History Family History Other No family history of adverse response to anesthesia Past Surgical History Surgical History History of esophagogastroduodenoscopy (EGD) History of partial hysterectomy History of total hip arthroplasty left Hx laparoscopic cholecystectomy Hx of foot surgery Lt. foot-tendon sx. Social History Smoking Status: Current every day smoker tobacco type: cigarettes Smoking cigarettes per day: 20cigs/day>advised Do You Dip or Chew Tobacco: No Hx Alcohol Use: No substance use type: does not use Lab Results Anesthesia Preop Results Results Anesthesia Widget: WBC 10.41 K/ul (4.8-10.8) 04/21/23 Hgb 13.4 g/dl (12.0-16.0) 04/21/23 Hct 40.4 % (37.0-47.0) 04/21/23 Plt 333 K/uL (130-400) 04/21/23 Na 136 mmol/L (136-145) 04/21/23 K 4.0 mmol/L (3.5-5.1) 04/21/23 Cl 107 mmol/L (98-107) 04/21/23 CO2 21 mmol/L (21-32) 04/21/23 BUN 11 mg/dl (6-23) 04/21/23 Creat 0.75 mg/dl (0.6-1.2) 04/21/23 Glucose Level 89 mg/dl (70-99(Fasting)) 04/21/23 PT 9.7 Seconds (9.0-12.0) 04/21/23 PTT 28.5 Seconds (21.0-31.0) 04/21/23 INR 0.9 (0.9-1.1) 04/21/23 SARS-CoV-2, RNA, NAAT NEGATIVE (NEGATIVE) 03/01/23 Blood Type O Positive 04/21/23 Antibody Screen NEGATIVE 04/21/23 Testing Electrocardiogram Date: 02/16/23 NSR, rate 88 bpm Low voltage QRS Chest X-Ray Date: 02/16/23 No active disease in the chest
[~2023-05-10 05:01] MED LIST changes: +Scopolamine CHECK PATCH PLACEMENT SCH
[2023-05-10] MEDS ORDERED: ceFAZolin 2000MG 2,000 MG/15 ML SYR IV SCH (06:00)
[2023-05-10] MEDS ORDERED: FAMOTIDINE 20 MG TAB PO SCH (06:00)
[2023-05-10] MEDS ORDERED: LR 500ML BOLUS, THEN 15ML/HR IV SCH (06:00)
[2023-05-10] MEDS ORDERED: CeleBREX 200 MG CAP PO SCH (06:00)
[2023-05-10] MEDS ORDERED: dexAMETHasone**PF** 10 MG/ML VIAL IV SCH (06:00)
[2023-05-10] MEDS ORDERED: METOCLOPRAMIDE HCL 10 MG TABLET PO SCH (06:00)
[2023-05-10] MEDS ORDERED: TRANEXAMIC ACID 1,000 MG **IV Pre-op IV SCH (06:00)
[2023-05-10] MEDS ORDERED: BUPIVACAINE LIPOSOME/PF 266 MG, BUPIVACAINE/EPINEPHRINE 50 ML, SODIUM CHLORIDE 0.9% PF ... INFIL SCH (06:00)
[2023-05-10] MEDS ORDERED: LR 60ML/HR IV SCH (06:00)
[2023-05-10] MEDS ORDERED: ACETAMINOPHEN 500 MG TAB PO SCH (06:00)
[2023-05-10] MEDS ORDERED: BUPIVACAINE 0.5 % 5 MG/1 ML PF 10ML VIAL ONE (06:20)
[2023-05-10] MEDS ORDERED: MIDAZOLAM HCL 1 MG/ML 2ML VIAL ONE (06:45)
--- NOTE | 2023-05-10 06:50 | History & Physical Bridge Note ---
Date of Service May 10, 2023 History & Physical Bridge Note I have examined the patient, reviewed the History & Physical and in the interval since the performance of the History & Physical I have noted the following changes of clinical significance: no changes noted
[2023-05-10] MEDS ORDERED: fentaNYL citrate PF 100 MCG/2 ML VIAL ONE (06:51)
[2023-05-10] MEDS ORDERED: HYDROmorphone INJ 2 MG/ML SYR/VIAL IV PRN (06:53)
[2023-05-10] MEDS ORDERED: ePHEDrine sulfate 50 MG/ML AMP IV PRN (06:53)
[2023-05-10] MEDS ORDERED: fentaNYL citrate PF 100 MCG/2 ML VIAL IV PRN (06:53)
[2023-05-10] MEDS ORDERED: ATROPINE SULFATE 0.1 MG/ML 10ML SYR IV PRN (06:53)
[2023-05-10] MEDS ORDERED: ONDANSETRON INJ 2 MG/ML 2 ML VIAL IV PRN ×2 (06:53→10:16)
[2023-05-10] MEDS ORDERED: PROMETHAZINE HCL 6.25 MG in SODIUM CHLORIDE 0.9% 50 ML IV PRN (06:53)
[2023-05-10] MEDS ORDERED: SCOPOLAMINE 1 MG TDSY TD ONE ×2 (06:54)
[2023-05-10] MEDS ORDERED: BUPIVACAINE/EPINEPHRINE 0.5% MPF 1:200,000 30 ML VIAL ONE (06:58)
[2023-05-10] MEDS ORDERED: PROPOFOL IV EMULSION 10 MG/ML 20 ML VIAL IV ONE (07:31)
[2023-05-10] MEDS ORDERED: ROCURONIUM BROMIDE 10 MG/ML 5 ML VIAL IV ONE (07:31)
[2023-05-10] MEDS ORDERED: LIDOCAINE 2% 2 ML VIAL/AMP(20MG/ML) INFIL ONE (07:31)
[2023-05-10] MEDS ORDERED: ONDANSETRON INJ 2 MG/ML 2 ML VIAL ONE (07:31)
[2023-05-10] MEDS ORDERED: KETOROLAC 30 MG/ML VIAL ONE (07:31)
[2023-05-10] MEDS ORDERED: SUGAMMADEX SODIUM 200 MG/2 ML VIAL IV ONE (08:28)
--- NOTE | 2023-05-10 08:50 | Operative Report ---
PG Post Operative Report Pre & Post Diagnosis Operation Date: 05/10/23 07:00 Pre-Op Diagnosis: Right Hip Degenerative Joint Disease Post-Op Diagnosis: Right Hip Degenerative Joint Disease I identified the patient and participated in the time-out.: Yes Procedure Operation Date: 05/10/23 07:00 Actual Procedures p Right Total Hip Arthroplasty(Right) - Edward Urias MD Surgeon Edward Urias MD Plush Weaver Michael Weber PA-C Estimated Blood Loss 200 Findings Consistent with Post-Op Diagnosis Operative findings were advanced right hip DJD. Extensive grade 4 [id number] disease of the femoral head and acetabulum. Specimens Right femoral head sent for pathology Drains None Anesthesia Type Spinal MAC Complications none Disposition Accompanied Patient To Recovery: No Indications Patient is a 47-year-old female has had several year history of increasing bilateral hip pain and discomfort is gotten markedly worse over the past year. She failed all conservative measures. She underwent a left hip replacement just several months ago and is done well. That she continued be limited by right hip pain discomfort. She elected proceed with total hip arthroplasty. Description of Procedure Operative implants consist of: 1. Biomet G7 size 50 mm acetabular shell. 2. Afton hole eliminator. 3. 6.5 cancellous acetabular screws 135 mm in length and 120 mm length. 4. Highly cross-linked polyethylene liner with a 50 mm outer diam and 32 mm inner diameter. 5. DePuy Corail size 9, 125 degree angle, short neck femoral stem. 6. +5/32 mm ceramic articular ball. The patient was taken the operating, identified, placed on the operating table supine position but all contact areas were appropriately padded. IV antibiotics tried by anesthesia team. A general anesthetic was implemented by the anesthesia team. Templeton catheter was placed in sterile fashion. The patient was then placed in the left lateral cubitus position. An axillary roll was placed. A Stulberg hip positioner was used for positioning. The right hip and leg were then prepped and draped in usual sterile fashion. A posterolateral approach to the right hip was then performed to a curvilinear incision centered over the greater trochanter. Sharp dissection was carried through subcutaneous tissue down to level the IT band gluteal fascia the IT band gluteal fascia incised longitudinally in line with skin incision. The underlying greater bursa was excised. The piriformis and external rotators along with the posterior hip joint capsule were then released from the posterior aspect the hip as a single layer. Great care was taken throughout the procedure to protect the sciatic nerve at all times. Hip was internally rotated and di slocated. A femoral neck osteotomy cut was made with a Final Cut about 8 mm above the lesser trochanter. The femoral head was removed and sent for pathology. The femur was retracted anteriorly. Attention drawn the acetabulum. The acetabular labrum was excised. The pulmonary fat was excised. Sequential reaming the acetabular was then performed again with a size 43 and progressing up to 49. I reamed a little bit with a 50 reamer and then placed a 50 mm cup in about 40 degrees lateral opening and 20 degrees of anteversion. It was fixed with two 6.5 cancellous acetabular screws. Trial liner was placed. We elect to use a 32 liner in order to maximize her polyethylene due to her young age. Attention drawn the femur. The proximal femur was entered with a Adhysteria cutter followed by canal finder. Broached beginning with size 8 and progressed up to a 9 pubic excellent fit at the 9. We trialed the hip and the the hip was fully stable with the a short neck with appropriate soft tissue tension. We elect to place these implants. Nupathe all trial implants were removed. Afton hole eliminator was placed. Highly cross-linked polyethylene liner was placed. A size 9 KLA 125 degree ang le short neck femoral stem was impacted in position. We left this just about a millimeter proud. A +5/32 mm ceramic articular ball was placed. Hip was located and once again found to be stable. Attention drawn toward closing. The wound was irrigated with copious pulsatile lavage solution. I did inject locally with 60 cc of half percent Marcaine with epinephrine. The posterior capsule and external rotators were repaired through drill holes in the posterior trochanter with #2 Tycron suture. The IT band gluteal fascia then closed #1 PDS suture running fashion for the subcutaneous tissues then closed with 2 layers with a deep layer #2 Vicryl suture in a buried interrupted fashion the subcu tissues with 2-0 Dexon suture in a buried interrupted fashion. The skin was closed skin ashok. Leg was then cleaned and dried and a Prevena VAC dressing was applied. The patient then put back on the transport table and brought out of general anesthesia and transferred to the recovery room in stable condition. Patient tolerated procedure well and there were no complications. Michael Weber, my physician embalmer assistant, was present for the entire procedure. His assistance was essential and required for appropriate patient positioning, prepping and draping, surgical exposure, performing the technical details of the operation, placement the implants, closure of the wound, and placement of the sterile bandage. I attest to the content of the Intraoperative Record and any orders documented therein. Any exceptions are noted below.
--- NOTE | 2023-05-10 09:24 | Anesthesiology Progress Note ---
Date of Service May 10, 2023 Anesthesia Post Procedure Vital Signs Vital Signs: Temp Pulse Pulse Resp BP Pulse Ox O2 Del Method 05/10/23 09:15 37.1 C 101 H 14 122/81 95 Nasal Cannula 05/10/23 09:05 100 H 18 122/78 98 Oxymask 05/10/23 08:55 107 H 18 120/86 98 Oxymask 05/10/23 08:47 36.6 C 107 H 18 124/91 98 Oxymask 05/10/23 05:30 36.4 C L 108 H 20 144/95 H 96 Room Air O2 Flow Rate 05/10/23 09:15 2 05/10/23 09:05 5 05/10/23 08:55 9 05/10/23 08:47 9 05/10/23 05:30 Pain Intensity Right Hip: Pain Intensity: 7 Transfer of Care Handoff Completed per policy Notes Mental Status: alert / awake / arousable Patient Amnestic to Procedure: Yes Nausea / Vomiting: adequately controlled Pain: adequately controlled Airway Patency, RR, SpO2: stable & adequate BP & HR: stable & adequate Hydration State: stable & adequate Anesthetic Complications: no major complications apparent
--- NOTE | 2023-05-10 09:31 | XRay Report ---
XR hip 1V RT w pelvis HISTORY: 47 years-old Female IN PACU - Post Surgical right hip arthroplasty COMPARISON: 04/21/2023 TECHNIQUE: AP view of the pelvis with crosstable lateral view of the right hip FINDINGS: Unchanged appearance of the left hip arthroplasty. Right hip arthroplasty also demonstrates satisfact ory alignment without acute fracture or unexpected opaque foreign body. Right lateral skin ashok wi th expected postoperative soft tissue swelling and deep tissue air. IMPRESSION: Right hip arthroplasty with expected postoperative changes. ACT 112: Negative or not required by law. The above report was generated using voice recognition software. It may contain grammatical, syntax o r spelling errors. Electronically signed by: Markus Garcia M.D. 05/10/2023 9:29 AM
[2023-05-10] MEDS ORDERED: MAGNESIUM HYDROXIDE SUSP 30 ML UDC PO PRN (10:16)
[2023-05-10] MEDS ORDERED: DOCUSATE SODIUM 100 MG CAP PO PRN (10:16)
[2023-05-10] MEDS ORDERED: traMADol HCL 50 MG TABLET PO PRN (10:16)
[2023-05-10] MEDS ORDERED: HYDROmorphone INJ 0.5 MG/0.5 ML SYR IV PRN (10:16)
[2023-05-10] MEDS ORDERED: lamoTRIgine 25 MG TAB PO SCH (10:16)
[2023-05-10] MEDS ORDERED: ERGOCALCIFEROL 50,000 UNITS 1250 MCG CAP PO SCH (10:16)
[2023-05-10] MEDS ORDERED: diphenhydrAMINE Capsule 25 MG CAP PO PRN (10:16)
[2023-05-10] MEDS ORDERED: METOCLOPRAMIDE HCL INJ 5 MG/ML 2 ML VIAL IV PRN (10:16)
[2023-05-10] MEDS ORDERED: bisacodyL 10 MG SUPP PR PRN (10:16)
[2023-05-10] MEDS ORDERED: ALUMINUM/MAGNESIUM SUSP 30 ML UDC PO PRN (10:16)
[2023-05-10] MEDS ORDERED: NALOXONE HCL 0.4 MG/1 ML VIAL/CARP IV PRN (10:16)
[2023-05-10] MEDS ORDERED: Nursing to Pharmacy Communication SCH (10:45)
[2023-05-10] MEDS: lamoTRIgine 100 MG TAB PO SCH (11:39)
[2023-05-10] MEDS: PANTOprazole 40 MG TAB PO SCH (11:41)
[2023-05-10] MEDS: VENLAFAXINE HCL XR 150 MG CAPXR PO SCH (11:42)
[2023-05-10] MEDS: ALPRAZolam 0.5 MG TABLET PO SCH ×2 (11:56→20:00)
[2023-05-10] MEDS: CALCIUM CARBONATE 500 MG CHEWABLE TAB PO SCH ×2 (13:03→20:01)
[2023-05-10] MEDS: SENNA 8.6 MG TAB PO SCH ×2 (13:04→20:01)
[2023-05-10] MEDS: ACETAMINOPHEN 500 MG TAB PO SCH ×2 (13:04→20:01)
[2023-05-10] MEDS: DOCUSATE SODIUM 100 MG CAP PO SCH ×2 (13:05→20:00)
[2023-05-10] MEDS: ASPIRIN 81 MG ECTAB PO SCH ×2 (13:05→20:00)
[2023-05-10] MEDS: MULTIVITAMIN TAB PO SCH (13:05)
[2023-05-10] MEDS: SODIUM CHLORIDE 0.9% 1000ML 1,000 ML IV SCH ×2 (13:08→22:07)
[2023-05-10] MEDS: KETOROLAC 30 MG/ML VIAL IV SCH ×3 (14:45→22:07)
[2023-05-10] MEDS ORDERED: TRANEXAMIC ACID / 0.7% NACL 1,000 MG/100 ML BAG IV SCH (15:00)
[2023-05-10] MEDS: CHECK SCOPOLAMINE PATCH PLACEMENT SCH ×2 (15:46→23:24)
[2023-05-10] MEDS: ceFAZolin 2000MG 2,000 MG/15 ML SYR IV SCH ×2 (16:53→23:15)
[2023-05-10] MEDS: ASCORBIC ACID 500 MG TAB PO SCH (16:54)
[2023-05-10] MEDS: MICONAZOLE NITRATE POWDER 85 GM EXT SCH (20:01)
[2023-05-10] MEDS ORDERED: FAMOTIDINE 40 MG TABLET PO SCH (21:00)
[2023-05-10] MEDS ORDERED: ROSUVASTATIN CALCIUM 5 MG TAB PO SCH (21:00)
[2023-05-10] MEDS ORDERED: lamoTRIgine 100 MG TAB PO SCH (21:00)
[2023-05-10] MEDS ORDERED: MONTELUKAST SODIUM 10 MG TABLET PO SCH (21:00)
[2023-05-10] MEDS ORDERED: CETIRIZINE HCL 10 MG TABLET PO SCH (21:00)
[2023-05-10] MEDS ORDERED: SENNA 8.6 MG TAB PO SCH (21:00)
[2023-05-11] MEDS: KETOROLAC 30 MG/ML VIAL IV SCH ×2 (04:00→10:16)
[2023-05-11 07:22] LABS: Basophils # (auto) 0.02 K/uL (0-0.2); Basophils % (auto) 0.2 %; Eosinophils # (auto) 0.02 K/uL (0-0.50); Eosinophils % (auto) 0.2 %; Hematocrit (blood only) 31.1 % (37.0-47.0); Hemoglobin 10.5 g/dl (12.0-16.0); Immature Granulocytes # (auto) 0.09 K/uL (0.01-0.20); Immature Granulocytes % (auto) 0.7 %; Lymphocytes # (auto) 2.18 K/uL (1.2-3.4); Lymphocytes % (auto) 17.4 %; Mean Corpuscular Hemoglobin 29.2 pg (25.0-34.0); Mean Corpuscular Hgb Conc 33.8 g/dL (32.0-36.0); Mean Corpuscular Volume 86.4 fL (80.0-100.0); Mean Platelet Volume 8.9 fL (9.4-12.4); Monocytes % (auto) 9.6 %; Neutrophils # (auto) 9.05 K/uL (1.40-6.50); Neutrophils % (auto) 71.9 %; Platelet Count 256 K/uL (130-400); RDW Coefficient of Variation 13.4 % (11.5-14.5); RDW Standard Deviation 42.2 fL (36.4-46.3); White Blood Count 12.56 K/ul (4.8-10.8)
[2023-05-11 07:51] LABS: BUN Creatinine Ratio 20.3 (10-20); Calcium 8.6 mg/dl (8.6-10.3); Creatinine Clr Calc Pharmacy 118.5 ml/min; Est GFR (African American) 121.4 ml/min; Est GFR (Non-African American) 104.8 ml/min; Potassium 3.8 mmol/L (3.5-5.1)
[2023-05-11] MEDS ORDERED: dexAMETHasone 10 MG in SYRINGE 0 ML IV SCH (08:00)
[2023-05-11] MEDS: PANTOprazole 40 MG TAB PO SCH (08:35)
[2023-05-11] MEDS: ASCORBIC ACID 500 MG TAB PO SCH (08:35)
[2023-05-11] MEDS: SENNA 8.6 MG TAB PO SCH (08:35)
[2023-05-11] MEDS: VENLAFAXINE HCL XR 150 MG CAPXR PO SCH (08:36)
[2023-05-11] MEDS: MULTIVITAMIN TAB PO SCH (08:36)
[2023-05-11] MEDS: lamoTRIgine 100 MG TAB PO SCH (08:37)
[2023-05-11] MEDS: ASPIRIN 81 MG ECTAB PO SCH (08:38)
[2023-05-11] MEDS: CHECK SCOPOLAMINE PATCH PLACEMENT SCH (08:39)
[2023-05-11] MEDS ORDERED: lamoTRIgine 25 MG TAB PO SCH (09:00)
[2023-05-11] MEDS ORDERED: DESVENLAFAXINE SUCCINATE ER TABLET PO SCH (09:30)
--- NOTE | 2023-05-11 09:41 | Orthopedic Progress Note ---
Date of Service May 11, 2023 Assessment & Plan (1) Status post right hip replacement: 47-year-old female postop day 1 from right hip replacement. She is doing well. Pain is controlled. Dislocated. She is neurologically intact. Plan: 1. DVT prophylaxis including thigh-high teds SCDs and aspirin twice a day. 2. PT OT. Weight-bear as tolerated. Right total hip protocol. 3. Pain control. Doing well with current pain regimen 4.disposition plan to discharge to home with some home help later today. Subjective .47-year-old female postop day 1 from right total hip replacement. She is doing well. Pain is very well controlled. She went to therapy this morning and passed. She is hoping to go home. She is a bit frustrated as she did not feel like she is getting the right medicines. Review of Systems All systems reviewed & are unremarkable except as noted in HPI & below. Physical Exam . Physical examination reveals a pleasant middle-age female. She is sitting up in her bedside chair looks comfortable. Examination of the right hip reveals a Prevena VAC dressing being placed. The leg lengths are equal. Thigh is soft and supple. She can dorsiflex and plantarflex her foot appropriately. She is neurologically intact. Respiratory normal respiratory effort, lungs clear to auscultation Cardiovascular RRR, no murmur, no edema Gastrointestinal (Abdomen) normal bowel sounds, soft, nontender, no hepatosplenomegaly Results & Data Results & Data Laboratory Results . Hemoglobin is 10.5 hematocrit 31.1.Electrolytes are stable. Diagnostic Findings . PG Care Time/CCT Total # of Minutes Spent Total Time Spent with Patient: Total time spent is greater than 50% in coordination of care (as documented) at patient's floor/unit and/or counseling patient: Coding Level of Care Code 51324 Post Operative Follow-Up Diagnoses Status post right hip replacement Z96.641
[2023-05-11] MEDS: ACETAMINOPHEN 500 MG TAB PO SCH (09:46)
[2023-05-11] MEDS: ALPRAZolam 0.5 MG TABLET PO SCH (09:46)
[2023-05-11] MEDS: DOCUSATE SODIUM 100 MG CAP PO SCH (09:50)
[2023-05-11] MEDS: MICONAZOLE NITRATE POWDER 85 GM EXT SCH (09:50)
[2023-05-11] MEDS: CALCIUM CARBONATE 500 MG CHEWABLE TAB PO SCH (09:51)
== END 2023-05-11 10:57 | disposition home health service (06) ==
LOC: PACUINP 05:01 → ASU 05:01 → 3W 12:13